=== PATIENT | female | born 1955 | race Caucasian/White ===

== ENCOUNTER 2017-05-11 20:10 | Inpatient (IN) | payer OTHER, MEDICAID ==
[~2017-05-11] VITALS: Ht 157.5 cm; Wt 70.0 kg
[2017-05-11 22:33] LABS: Basophils # (auto) 0 uL; Basophils % (auto) 0.2 % (0.0-2.0); CONDITION Y; Eosinophils # (auto) 0.5 uL; Eosinophils % (auto) 7.9 % (0.0-7.0); Hematocrit 37.8 % (36.0-46.0); Hemoglobin 12.3 g/dL (12.2-16.2); Lymphocytes # (auto) 1.2 uL; Mean Corpuscular Hemoglobin 31.4 pg (28.0-32.0); Mean Corpuscular Hgb Conc. 32.6 g/dL (32.0-36.0); Mean Corpuscular Volume 96.4 fL (80.0-100.0); Mean Platelet Volume 7.8 fL (7.4-10.4); Monocytes # (auto) 0.4 uL; Monocytes % (auto) 5.8 % (0.0-12.0); Neutrophils # (auto) 4.4 uL; Neutrophils % (auto) 67.1 % (37.0-80.0); Platelet Count (auto) 280 10^3/uL (140-450); Red Cell Distribution Width 15.2 % (11.6-16.0); White Blood Cell 6.6 10^3/uL (4.4-10.8)
[2017-05-11 22:44] LABS: INR 1.02 (0.9-1.15); Partial Thromboplastin Time 27.2 sec (22.64-33.71); Prothrombin Time 11.1 sec (9.37-12.3)
[2017-05-11 22:49] LABS: Albumin 3.1 g/dL (3.4-5.0); Amylase 31 U/L (25-115); Anion Gap 11 (5-15); Blood Urea Nitrogen 71 mg/dL (7-18); Calcium 8.3 mg/dL (8.5-10.1); Carbon Dioxide 25 mmol/L (21-32); Chloride 99 mmol/L (98-107); Glucose 82 mg/dL (74-106); Magnesium 3.3 mg/dL (1.6-2.6); Sodium 135 mmol/L (136-145)
[2017-05-11 22:57] LABS: Alkaline Phosphatase 101 U/L (45-117); Aspartate Aminotransferase 16 U/L (15-37); Bilirubin, Total 0.4 mg/dL (0.2-1.0); GFR African American 4 mL/min; GFR Non-African American 4 mL/min; Total Protein 7.7 g/dL (6.4-8.2)
[2017-05-11 22:59] LABS: BUN/Creatinine Ratio 6.2
[2017-05-11] MEDS ORDERED: SODIUM BICARBONATE 8.4% INJ 50ML SYRINGE ONE (23:57)
[2017-05-11] MEDS ORDERED: CALCIUM GLUC 4.65 MEQ/10ML IV ONE (23:58)
[2017-05-12] MEDS ORDERED: InsuLIN REG 1unit/0.01ml Soln (100units/ml) IV ONE
[2017-05-12] MEDS ORDERED: DEXTROSE (50%) 50ML SYRG IV ONE
[2017-05-12] MEDS ORDERED: SODIUM BICARBONATE 8.4 % INJ 50ML VIAL IV ONE
[2017-05-12] MEDS ORDERED: CALCIUM GLUC 4.65 MEQ/10ML 4.65 MEQ in SODIUM CHL 0.9% 50 ML IV ONE ×2
[2017-05-12] MEDS ORDERED: FUROSEMIDE 40 MG/4 ML VIAL IV ONE
[2017-05-12 00:54] LABS: Temperature: 22.7 C (20.0-25.0)
[2017-05-12] MEDS ORDERED: cloNIDine HCL 0.1 MG TAB ONE (01:38)
[2017-05-12] MEDS ORDERED: cloNIDine HCL 0.1 MG TAB PO ONE (01:45)
[2017-05-12] MEDS ORDERED: MORPHINE SULFATE 4 MG/ML SYRG IV PRN (03:15)
[2017-05-12] MEDS ORDERED: ALBUTEROL SULF 2.5 MG/0.5ML(0.5%) NEB SOLN NEB ONE (03:15)
[2017-05-12] MEDS ORDERED: NITROGLYCERIN 0.4 MG SL TAB SL PRN (03:15)
[2017-05-12] MEDS ORDERED: ONDANSETRON HCL 4 MG/2 ML VIAL IV PRN (03:15)
[2017-05-12] MEDS ORDERED: LACTULOSE 20Gm/30ML SOLN PO PRN (03:15)
[2017-05-12] MEDS ORDERED: DEXTROSE (50%) 50ML SYRG IV PRN (03:15)
[2017-05-12] MEDS ORDERED: SODIUM POLYSTYRENE SULF 15GM/60ML SUSP PO ONE (03:15)
[2017-05-12] MEDS: InsuLIN REG 1unit/0.01ml Soln (100units/ml) SC SCH ×4 (06:00→23:35)
[2017-05-12] MEDS: GABAPENTIN 100 MG CAP PO SCH ×3 (06:00→22:43)
[2017-05-12] MEDS: METOCLOPRAMIDE HCL 10 MG TAB PO SCH ×4 (06:15→22:42)
[2017-05-12] MEDS: ACCU-CHEK COMFORT CURVE STRIP VI SCH ×4 (06:18→23:34)
[2017-05-12] MEDS ORDERED: CALC667T2 PO (08:52)
[2017-05-12] MEDS ORDERED: [UNRECOGNIZED DRUG - CODE] PO (08:52)
[2017-05-12] MEDS ORDERED: DOCU-137 PO (08:52)
[2017-05-12] MEDS ORDERED: OMEG306C OR (08:52)
[2017-05-12] MEDS ORDERED: OMEP20TA85 PO (08:52)
[2017-05-12] MEDS ORDERED: GABA-494 PO (08:52)
[2017-05-12] MEDS ORDERED: CHOL20002 PO (08:52)
[2017-05-12] MEDS ORDERED: INSUINJ49 SC ×2 (08:52)
[2017-05-12] MEDS ORDERED: SENN8.6T15 PO (08:56)
[2017-05-12] MEDS ORDERED: B-CO-5 OR (08:56)
[2017-05-12] MEDS ORDERED: CAR125T OR (08:56)
[2017-05-12] MEDS ORDERED: HYDR1CRE95 EX (08:56)
[2017-05-12] MEDS ORDERED: GLIM1TAB2 PO (08:56)
[2017-05-12] MEDS ORDERED: AML5T PO (08:56)
[2017-05-12] MEDS ORDERED: ATOR20TA50 PO (08:56)
[2017-05-12] MEDS ORDERED: ASPI-498 OR (08:56)
[2017-05-12] MEDS ORDERED: LISI-646 PO (08:56)
[2017-05-12] MEDS ORDERED: ESCI10TA PO (08:56)
[2017-05-12] MEDS ORDERED: ONDA4TAB5 PO (08:56)
[2017-05-12] MEDS ORDERED: ZALE10CA44 PO (08:56)
[2017-05-12 09:13] LABS: Albumin 3.2 g/dL (3.4-5.0); BUN/Creatinine Ratio 6.7; Bilirubin, Total 0.4 mg/dL (0.2-1.0); Calcium 8.9 mg/dL (8.5-10.1); Total Protein 7.4 g/dL (6.4-8.2)
[2017-05-12 09:14] LABS: Urine Bilirubin Negative (Negative); Urine Blood 1+ /uL (Negative); Urine Color Yellow (Yellow); Urine Glucose 2+ mg/dL (Normal); Urine Hyaline Cast MANY /lpf (0 - 2); Urine Ketone Negative (Negative); Urine Nitrite Negative (Negative); Urine RBC 9 /hpf (0 - 4); Urine Squamous Epithelial Cell MOD /hpf (<5); Urine Urobilinogen Normal (Negative); Urine WBC Clumps PRESENT /hpf (None Seen); Urine pH 7.5 (5.0-8.0)
[2017-05-12 09:18] LABS: Potassium 5.6 mmol/L (3.5-5.1)
[2017-05-12] MEDS: B-COMPLEX W/ C & FOLIC ACID(NEPHROVITE TAB) PO SCH (09:41)
[2017-05-12] MEDS: PANTOPRAZOLE SODIUM 40 MG/10 ML VIAL IV SCH (09:41)
[2017-05-12] MEDS: LISINOPRIL 20 MG TAB PO SCH (09:41)
[2017-05-12] MEDS: CHOLECALCIFEROL (VITD3) 1,000 UNIT TAB PO SCH (09:41)
[2017-05-12] MEDS: DOCUSATE SOD 100 MG CAP PO SCH ×2 (09:41→22:00)
[2017-05-12] MEDS: amLODIPine BESYLATE 5 MG TAB PO SCH (09:41)
[2017-05-12] MEDS: ASPirin 81 mg TAB PO SCH (09:41)
[2017-05-12] MEDS: CARVEDILOL 12.5 MG TAB PO SCH ×2 (09:41→22:44)
[2017-05-12] MEDS: CALCIUM ACETATE 667 MG CAP PO SCH ×3 (09:41→18:09)
[2017-05-12] MEDS: ENOXAPARIN SOD 30 MG/0.3 ML SYRINGE SC SCH (09:42)
[2017-05-12] MEDS: ACETAMINOPHEN 325 MG TAB PO PRN ×2 (13:45→19:53)
[2017-05-12] MEDS: hydrALAZINE HCL 20 MG/ML VL IV PRN ×2 (13:45→19:53)
[2017-05-12] MEDS ORDERED: SODIUM CHL 0.9% 1000 ML BAG XX ONE (14:15)
[2017-05-12] MEDS ORDERED: cefTRIAXone 1GM/50ML D5W 50 ML IV ONE (17:00)
[2017-05-12 19:19] VITALS: BP 89/51
[2017-05-12 20:03] LABS: BUN/Creatinine Ratio 5.2; Calcium 8.6 mg/dL (8.5-10.1); Potassium 3.9 mmol/L (3.5-5.1)
[2017-05-12 22:00] VITALS: BP_SYST 143; BP_SYST 145; BP_DIAS 60; BP_DIAS 66
[2017-05-12] MEDS: ATORVASTATIN 20 MG TAB PO SCH (22:43)
[2017-05-13 05:00] VITALS: BP 160/64
[2017-05-13 05:21] LABS: Basophils # (auto) 0 uL; Basophils % (auto) 0.2 % (0.0-2.0); CONDITION Y; Eosinophils # (auto) 0 uL; Eosinophils % (auto) 0.2 % (0.0-7.0); Hematocrit 37.7 % (36.0-46.0); Hemoglobin 12.1 g/dL (12.2-16.2); Lymphocytes # (auto) 1.3 uL; Lymphocytes % (auto) 12.3 % (10.0-50.0); Mean Corpuscular Hemoglobin 31.1 pg (28.0-32.0); Mean Corpuscular Hgb Conc. 32.3 g/dL (32.0-36.0); Mean Corpuscular Volume 96.5 fL (80.0-100.0); Mean Platelet Volume 8.1 fL (7.4-10.4); Monocytes # (auto) 0.5 uL; Monocytes % (auto) 4.5 % (0.0-12.0); Neutrophils # (auto) 8.5 uL; Neutrophils % (auto) 82.8 % (37.0-80.0); Platelet Count (auto) 272 10^3/uL (140-450); Red Cell Distribution Width 15.4 % (11.6-16.0); White Blood Cell 10.2 10^3/uL (4.4-10.8)
[2017-05-13] MEDS: ACCU-CHEK COMFORT CURVE STRIP VI SCH ×4 (05:36→23:11)
[2017-05-13] MEDS: InsuLIN REG 1unit/0.01ml Soln (100units/ml) SC SCH ×4 (05:36→23:28)
[2017-05-13 05:41] LABS: Albumin 2.9 g/dL (3.4-5.0); BUN/Creatinine Ratio 4.8; Bilirubin, Total 0.3 mg/dL (0.2-1.0); Calcium 8.4 mg/dL (8.5-10.1); Potassium 4.6 mmol/L (3.5-5.1)
[2017-05-13] MEDS: METOCLOPRAMIDE HCL 10 MG TAB PO SCH ×4 (06:11→21:41)
[2017-05-13] MEDS: GABAPENTIN 100 MG CAP PO SCH ×3 (06:11→21:40)
[2017-05-13 07:30] VITALS: BP 150/59
[2017-05-13 08:53] VITALS: BP 150/59
[2017-05-13] MEDS: ENOXAPARIN SOD 30 MG/0.3 ML SYRINGE SC SCH (10:37)
[2017-05-13] MEDS: B-COMPLEX W/ C & FOLIC ACID(NEPHROVITE TAB) PO SCH (10:37)
[2017-05-13] MEDS: cefTRIAXone 1GM/50ML D5W 50 ML IV SCH (10:37)
[2017-05-13] MEDS: PANTOPRAZOLE SODIUM 40 MG/10 ML VIAL IV SCH (10:37)
[2017-05-13] MEDS: CALCIUM ACETATE 667 MG CAP PO SCH ×3 (10:37→17:31)
[2017-05-13] MEDS: CARVEDILOL 12.5 MG TAB PO SCH ×2 (10:38→21:41)
[2017-05-13] MEDS: DOCUSATE SOD 100 MG CAP PO SCH ×2 (10:38→21:40)
[2017-05-13] MEDS: ASPirin 81 mg TAB PO SCH (10:39)
[2017-05-13] MEDS: LISINOPRIL 20 MG TAB PO SCH (10:39)
[2017-05-13] MEDS: amLODIPine BESYLATE 5 MG TAB PO SCH (10:39)
[2017-05-13] MEDS: CHOLECALCIFEROL (VITD3) 1,000 UNIT TAB PO SCH (10:39)
[2017-05-13] MEDS: ACETAMINOPHEN 325 MG TAB PO PRN ×2 (11:41→20:21)
[2017-05-13 13:00] VITALS: BP 123/51
[2017-05-13 16:43] VITALS: BP 143/58
[2017-05-13 21:35] VITALS: BP 161/72
[2017-05-13] MEDS: ATORVASTATIN 20 MG TAB PO SCH (21:40)
[2017-05-13] MEDS: hydrALAZINE HCL 20 MG/ML VL IV PRN (23:10)
[2017-05-14 00:30] VITALS: BP 145/68
[2017-05-14 04:34] VITALS: BP 125/65
[2017-05-14] MEDS: ACCU-CHEK COMFORT CURVE STRIP VI SCH ×3 (05:31→17:44)
[2017-05-14] MEDS: GABAPENTIN 100 MG CAP PO SCH ×2 (05:31→14:01)
[2017-05-14] MEDS: InsuLIN REG 1unit/0.01ml Soln (100units/ml) SC SCH ×3 (05:32→17:43)
[2017-05-14] MEDS: METOCLOPRAMIDE HCL 10 MG TAB PO SCH ×3 (05:52→17:00)
[2017-05-14 06:21] LABS: Basophils # (auto) 0 uL; Basophils % (auto) 0.2 % (0.0-2.0); CONDITION Y; Eosinophils # (auto) 0.5 uL; Eosinophils % (auto) 6.7 % (0.0-7.0); Hematocrit 36.2 % (36.0-46.0); Hemoglobin 11.6 g/dL (12.2-16.2); Lymphocytes # (auto) 1.7 uL; Lymphocytes % (auto) 22.8 % (10.0-50.0); Mean Corpuscular Hemoglobin 31.6 pg (28.0-32.0); Mean Corpuscular Volume 98.7 fL (80.0-100.0); Mean Platelet Volume 8.3 fL (7.4-10.4); Monocytes # (auto) 0.6 uL; Monocytes % (auto) 8.5 % (0.0-12.0); Neutrophils # (auto) 4.5 uL; Neutrophils % (auto) 61.8 % (37.0-80.0); Platelet Count (auto) 274 10^3/uL (140-450); Red Cell Distribution Width 15.6 % (11.6-16.0); White Blood Cell 7.3 10^3/uL (4.4-10.8)
[2017-05-14 06:40] LABS: Calcium 8.3 mg/dL (8.5-10.1); Potassium 4.3 mmol/L (3.5-5.1)
[2017-05-14] MEDS ORDERED: SODIUM CHL 0.9% 1000 ML BAG XX ONE (07:30)
[2017-05-14] MEDS: CALCIUM ACETATE 667 MG CAP PO SCH ×3 (08:00→17:44)
[2017-05-14 09:00] VITALS: BP 136/55
[2017-05-14] MEDS: PANTOPRAZOLE SODIUM 40 MG/10 ML VIAL IV SCH (09:48)
[2017-05-14] MEDS: ENOXAPARIN SOD 30 MG/0.3 ML SYRINGE SC SCH (09:49)
[2017-05-14] MEDS: cefTRIAXone 1GM/50ML D5W 50 ML IV SCH (09:51)
[2017-05-14] MEDS: CARVEDILOL 12.5 MG TAB PO SCH (10:00)
[2017-05-14] MEDS: amLODIPine BESYLATE 5 MG TAB PO SCH (10:00)
[2017-05-14] MEDS: CHOLECALCIFEROL (VITD3) 1,000 UNIT TAB PO SCH (10:00)
[2017-05-14] MEDS: B-COMPLEX W/ C & FOLIC ACID(NEPHROVITE TAB) PO SCH (10:00)
[2017-05-14] MEDS: DOCUSATE SOD 100 MG CAP PO SCH (10:00)
[2017-05-14] MEDS: LISINOPRIL 20 MG TAB PO SCH (10:00)
[2017-05-14] MEDS: ASPirin 81 mg TAB PO SCH (10:00)
[2017-05-14 13:00] VITALS: BP 152/68
[2017-05-14] MEDS: hydrALAZINE HCL 20 MG/ML VL IV PRN (14:00)
[2017-05-14] MEDS: ACETAMINOPHEN 325 MG TAB PO PRN ×2 (14:01→20:42)
[2017-05-14 17:00] VITALS: BP 139/66
[2017-05-14 21:42] VITALS: BP 147/76
== END 2017-05-14 22:30 | disposition home or self-care (01) | DRG 682 ==
LOC: ER 20:17 → TELE 20:18 → TELE-EAST 05-12 22:12
PROVIDERS: ADMIT Family Medicine; ATTEND Internal Medicine Geriatric Medicine
PROC: 5A1D60Z (ICD-10-PCS; principal; 2017-05-12)
DX: I13.11 Hypertensive heart and chronic kidney disease without heart failure, with stage 5 chronic kidney disease, or end stage renal disease (principal); G93.41 Metabolic encephalopathy; N18.6 End stage renal disease; E87.1 Hypo-osmolality and hyponatremia; E11.22 Type 2 diabetes mellitus with diabetic chronic kidney disease; E87.5 Hyperkalemia; E11.649 Type 2 diabetes mellitus with hypoglycemia without coma; Z99.2 Dependence on renal dialysis; Z91.15 Patient's noncompliance with renal dialysis
CPT/HCPCS: 36415; 51702; 71010; 80048; 80053; 80061; 81001; 82150; 82962; 83036; 83690; 83735; 83880; 84132; 84484; 85025; 85610; 85730; 90935; 93005; 94644; 94761; C9113; J0696; J1642; J1815; J2405

== ENCOUNTER 2018-12-22 11:31 | Inpatient (IN) | payer OTHER, MEDICAID ==
[~2018-12-22] VITALS: Ht 157.5 cm; Wt 56.8 kg
[~2018-12-22 11:31] MED LIST: AML5T PO; ASPI-498 OR; ATOR20TA50 PO; B-CO-5 OR; CALC667T2 PO; CAR125T OR; CHOL20002 PO; DOCU1CAP54 PO; ESCI10TA PO; GABA100C9 PO; GLIM1TAB2 PO; HYDR1CRE95 EX; INSUINJ49 SC; LISI-646 PO; OMEG306C OR; OMEP20TA85 PO; ONDA4TAB5 PO; SENN1TAB14 PO; ZALE10CA44 PO; [UNRECOGNIZED DRUG - CODE] PO
[2018-12-22] MEDS ORDERED: MORPHINE SULFATE 4 MG/ML SYR/VIAL IV ONE (11:45)
[2018-12-22] MEDS ORDERED: ONDANSETRON HCL 4 MG/2 ML VIAL IV ONE (11:45)
[2018-12-22 13:32] LABS: Basophils # (auto) 0 uL; Eosinophils # (auto) 0.1 uL; Monocytes # (auto) 0.5 uL
[2018-12-22 13:33] LABS: Mean Corpuscular Volume 91.2 fL (80.0-100.0)
[2018-12-22 13:42] LABS: Basophils % (auto) 0.7 % (0.0-2.0); Eosinophils % (auto) 1.3 % (0.0-7.0); Neutrophils # (auto) 5.6 uL; Nucleated Red Blood Cells % 0.1 %; White Blood Cell 6.9 10^3/uL (4.4-10.8)
[2018-12-22 13:43] LABS: Hematocrit 26.4 % (36.0-46.0); Hemoglobin 8.4 g/dL (12.2-16.2); Lymphocytes # (auto) 0.7 uL; Mean Corpuscular Hemoglobin 28.9 pg (28.0-32.0); Mean Corpuscular Hgb Conc. 31.7 g/dL (32.0-36.0); Red Blood Cells 2.89 10^6/uL (4.0-5.20); Red Cell Distribution Width 19.6 % (11.8-14.3)
[2018-12-22 13:44] LABS: INR 1.05 (0.9-1.15); Partial Thromboplastin Time 30.6 sec (23.78-33.04); Platelet Count (auto) 446 10^3/uL (140-450); Prothrombin Time 11.2 sec (9.27-12.13)
[2018-12-22 13:51] LABS: Albumin 1.5 g/dL (3.4-5.0); BUN/Creatinine Ratio 3.6; Calcium 7.4 mg/dL (8.5-10.1); Potassium 3.1 mmol/L (3.5-5.1)
[2018-12-22 13:56] LABS: Bilirubin, Total 0.3 mg/dL (0.2-1.0); Total Protein 6.4 g/dL (6.4-8.2)
[2018-12-22] MEDS ORDERED: DEXTROSE (50%) 50ML SYRG IV PRN (14:00)
[2018-12-22] MEDS ORDERED: PROMETHAZINE HCL 25 MG/ML 1ML IV PRN (14:00)
[2018-12-22] MEDS ORDERED: LACTULOSE 20Gm/30ML SOLN PO PRN (14:00)
[2018-12-22] MEDS ORDERED: MORPHINE SULFATE 4 MG/ML SYR/VIAL IV PRN ×2 (14:00)
[2018-12-22] MEDS ORDERED: NITROGLYCERIN 0.4 MG SL TAB SL PRN (14:00)
[2018-12-22] MEDS ORDERED: LORazepam 0.5 MG TAB PO PRN (14:00)
[2018-12-22] MEDS ORDERED: HYDROcodone-ACET 5/325MG TAB PO PRN (14:00)
[2018-12-22] MEDS ORDERED: NITROGLYCERIN 0.2MG/HR TOPICAL PATCH TD ONE (14:30)
[2018-12-22] MEDS ORDERED: ASPirin 81 mg TAB PO ONE (14:30)
[2018-12-22] MEDS ORDERED: GLIMEPIRIDE 2 MG TAB PO ONE (14:30)
[2018-12-22] MEDS ORDERED: CHOLECALCIFEROL (VITD3) 1,000 UNIT TAB PO ONE (14:30)
[2018-12-22] MEDS ORDERED: PANTOPRAZOLE 40 MG TAB PO ONE (14:30)
[2018-12-22] MEDS ORDERED: CARVEDILOL 12.5 MG TAB PO ONE (14:30)
[2018-12-22] MEDS ORDERED: DOCUSATE SOD 100 MG CAP PO ONE (14:30)
[2018-12-22] MEDS ORDERED: CITALOPRAM HYDROBR 20 MG TAB PO ONE (14:30)
[2018-12-22] MEDS ORDERED: LISINOPRIL 20 MG TAB PO ONE (14:30)
[2018-12-22] MEDS ORDERED: amLODIPine BESYLATE 5 MG TAB PO ONE (14:30)
[2018-12-22] MEDS: METOCLOPRAMIDE HCL 10 MG TAB PO SCH ×2 (15:31→22:00)
[2018-12-22] MEDS: GLIMEPIRIDE 2 MG TAB PO SCH (15:33)
[2018-12-22] MEDS: SODIUM CHLOR 0.9% PF (SALINE LOCK) 10ML VIAL/SYR IV SCH ×2 (15:33→23:46)
[2018-12-22] MEDS: GABAPENTIN 100 MG CAP PO SCH ×2 (15:34→22:00)
[2018-12-22] MEDS ORDERED: OSELTAMIVIR 75 MG CAP PO ONE (17:00)
[2018-12-22] MEDS ORDERED: ALBUTEROL SULF 2.5 MG/0.5ML(0.5%) NEB SOLN NEB PRN (17:00)
[2018-12-22] MEDS ORDERED: ENOXAPARIN SOD 60 MG/0.6 ML SYRINGE SC ONE (17:00)
[2018-12-22] MEDS: ACCU-CHEK COMFORT CURVE STRIP VI SCH ×2 (17:29→23:02)
[2018-12-22] MEDS: InsuLIN REG 1unit/0.01ml Soln (100units/ml) SC SCH ×2 (17:33→22:00)
[2018-12-22 17:58] VITALS: BP 135/66
[2018-12-22] MEDS ORDERED: CALCIUM ACETATE 667 MG CAP PO SCH (18:00)
[2018-12-22] MEDS: DOXYCYCLINE 100MG/250ML 250 ML IV SCH (18:26)
[2018-12-22] MEDS: CALCIUM ACETATE 667 MG CAP PO SCH (18:26)
[2018-12-22] MEDS: IPRATROPIUM BROM 0.5 MG/2.5ML INH SOL NEB SCH ×2 (18:44→23:49)
[2018-12-22] MEDS: ALBUTEROL SULF 2.5 MG/0.5ML(0.5%) NEB SOLN NEB SCH ×2 (18:44→23:49)
[2018-12-22] MEDS: ATORVASTATIN 20 MG TAB PO SCH (22:00)
[2018-12-22] MEDS: SENNA 8.6 MG TAB PO SCH (22:00)
[2018-12-22] MEDS: DOCUSATE SOD 100 MG CAP PO SCH (22:00)
[2018-12-22] MEDS: CARVEDILOL 12.5 MG TAB PO SCH (22:00)
[2018-12-22 22:05] VITALS: BP 148/66
--- NOTE | 2018-12-22 22:08 | NUR ---
Telemetry admit from ER VIANEY FIGUEROA admitted to Telemetry unit. Patient responds to name and shaking. Patient is oriented to self only at this time. Patient now on continuous telemetry monitoring, tele box # 45. and telemetry reading on arrival to unit is sinus rhythm 70. Patient placed on bedside oxygen 3L NC. at bedside. Physical assessment performed. Reviewed plan of care with , verbalized understanding. Bed in low and locked position, call light within reach. Will continue to monitor Q1 hour and PRN.
--- NOTE | 2018-12-22 23:02 | NUR ---
Low Blood Glucose Upon entering patients room, patient was diaphoretic. Checked blood glucose, blood glucose was 31. Patient is unable to swallow, dextrose was give. Will continue to monitor
--- NOTE | 2018-12-22 23:05 | NUR ---
Medications held Patient is unable to swallow. 2200 Medications were held. Will continue to monitor Q1 hour and PRN.
--- NOTE | 2018-12-22 23:22 | NUR ---
Blood Glucose Reassessed Reassessment of blood glucose is 221. Charge nurse Adelaida is aware of patient status. Patient is aroused to name and shaking. Patient is able to state her name. Will continue to monitor Q1 hour and PRN.
--- NOTE | 2018-12-22 23:31 | NUR ---
Blood Glucose Reassessed blood glucose, is now at 176. Will continue to monitor Q1 hour and PRN.
--- NOTE | 2018-12-23 00:15 | NUR ---
Unable to obtain home medications Patient is unable to answer. Family to bring in list tomorrow.
--- NOTE | 2018-12-23 00:45 | NUR ---
Wound photos taken Photos taken of sacrum, redness and bruising. Photos taken of skin tear on buttocks. Area cleaned and pat dry, covered with zguard and optifoam for preventative. Will continue to monitor
--- NOTE | 2018-12-23 01:26 | NUR ---
MRSA swab sent
[2018-12-23] MEDS: DOXYCYCLINE 100MG/250ML 250 ML IV SCH ×2 (04:32→17:55)
--- NOTE | 2018-12-23 04:50 | NUR ---
Respiratory culture sent Patient produced thick yellow sputum, collected and sent to lab
[2018-12-23] MEDS: SODIUM CHLOR 0.9% PF (SALINE LOCK) 10ML VIAL/SYR IV SCH ×3 (04:51→21:16)
[2018-12-23] MEDS: GABAPENTIN 100 MG CAP PO SCH ×3 (05:15→21:19)
[2018-12-23] MEDS: METOCLOPRAMIDE HCL 10 MG TAB PO SCH ×3 (05:16→21:20)
[2018-12-23 05:55] VITALS: BP 168/62
[2018-12-23 05:59] LABS: Basophils # (auto) 0 uL; Eosinophils # (auto) 0 uL; Eosinophils % (auto) 0.8 % (0.0-7.0); Hemoglobin 7.8 g/dL (12.2-16.2); Lymphocytes # (auto) 0.4 uL; Monocytes # (auto) 0.4 uL; Neutrophils % (auto) 77.8 % (37.0-80.0); White Blood Cell 3.9 10^3/uL (4.4-10.8)
[2018-12-23 06:00] LABS: Basophils % (auto) 0.6 % (0.0-2.0); Lymphocytes % (auto) 10.6 % (10.0-50.0); Mean Corpuscular Hemoglobin 29.5 pg (28.0-32.0); Mean Corpuscular Hgb Conc. 31.4 g/dL (32.0-36.0); Mean Corpuscular Volume 93.9 fL (80.0-100.0); Monocytes % (auto) 10.2 % (0.0-12.0); Platelet Count (auto) 375 10^3/uL (140-450); Red Blood Cells 2.66 10^6/uL (4.0-5.20); Red Cell Distribution Width 19.8 % (11.8-14.3)
[2018-12-23] MEDS: InsuLIN REG 1unit/0.01ml Soln (100units/ml) SC SCH ×4 (06:15→21:20)
[2018-12-23] MEDS: ACCU-CHEK COMFORT CURVE STRIP VI SCH ×4 (06:15→21:15)
[2018-12-23 06:17] LABS: Albumin 1.3 g/dL (3.4-5.0); Calcium 6.1 mg/dL (8.5-10.1)
[2018-12-23 06:22] LABS: BUN/Creatinine Ratio 3.9; Bilirubin, Total 0.2 mg/dL (0.2-1.0); Total Protein 5.3 g/dL (6.4-8.2)
[2018-12-23] MEDS: IPRATROPIUM BROM 0.5 MG/2.5ML INH SOL NEB SCH ×4 (06:23→23:33)
[2018-12-23] MEDS: ALBUTEROL SULF 2.5 MG/0.5ML(0.5%) NEB SOLN NEB SCH ×4 (06:23→23:33)
[2018-12-23 06:25] LABS: Potassium 2.8 mmol/L (3.5-5.1)
--- NOTE | 2018-12-23 06:28 | NUR ---
Critical lab value Lab called, critical Potassium 2.8. Will page hospitalist
--- NOTE | 2018-12-23 06:30 | NUR ---
[place] hospitalist Spoke with STEPHANIE Marlow. New orders received for critical potassium of 2.8. 40meq potassium IV one time. Will implement orders.
[2018-12-23] MEDS: POTASSIUM CHL 20MEQ/100ML 100 ML IV SCH ×2 (06:46→11:46)
--- NOTE | 2018-12-23 07:30 | NUR ---
OPENING NOTE RECEIVED REPORT. PATIENT ORIENTED TO SELF ONLY. PATIENT STATES SHE IS HUNGRY AND NEEDS HELP WITH BREAKFAST, WILL ASSIST PATIENT WHEN BREAKFAST ARRIVES. NO S.S OF DISTRESS AT THIS TIME. POTASSIUM INFUSING AT THIS TIME. Addendum: 12/23/18 at 0943 by LEONCIO MAYER RN PATIENT ABLE TO TURN SELF, NEEDS REMINDERS. WILL CONTINUE TO MONITOR.
--- NOTE | 2018-12-23 07:46 | NUR ---
Closing Note Report given to day shift RN. No signs or symptoms of distress noted at this time.
--- NOTE | 2018-12-23 08:00 | NUR ---
FAMILY AT BEDSIDE, ASSISTED PATIENT WITH BREAKFAST.
[2018-12-23] MEDS: ASPirin 81 mg TAB PO SCH (08:21)
[2018-12-23] MEDS: CALCIUM ACETATE 667 MG CAP PO SCH ×3 (08:21→17:55)
[2018-12-23] MEDS: DOCUSATE SOD 100 MG CAP PO SCH ×2 (08:21→21:17)
[2018-12-23] MEDS: CITALOPRAM HYDROBR 20 MG TAB PO SCH (08:22)
[2018-12-23] MEDS: CHOLECALCIFEROL (VITD3) 1,000 UNIT TAB PO SCH (08:22)
[2018-12-23] MEDS: PANTOPRAZOLE 40 MG TAB PO SCH (08:22)
[2018-12-23] MEDS: ENOXAPARIN SOD 60 MG/0.6 ML SYRINGE SC SCH (08:23)
[2018-12-23] MEDS: amLODIPine BESYLATE 5 MG TAB PO SCH (08:24)
[2018-12-23] MEDS: NITROGLYCERIN 0.2MG/HR TOPICAL PATCH TD SCH (08:24)
[2018-12-23 09:00] VITALS: BP 138/59
--- NOTE | 2018-12-23 09:58 | NUR ---
WOUND CARE NOTE: Wound care in to see patient per wound care request regarding skin integrity issue that are noted present on admission. Bedside nurse took photograph of patient's skin issue upon admission for reference. Patient is 63 years old female with admitting diagnosis of Chest pain. She has history of DM and htn. Patient is resting in bed in Rm. 209. She's awake, alert and follow simple direction. Patient in no stated pain at this time however, mild pain noted upon turning. She needs assistance in turning and repositioning and her current Ricardo score is 13. Skin assessment done with the assistance of patient's nurse, KENYA Bsos. Noted 1x0.5cm open partial thickness wound to patient's Rt sacrum with brown hyperpigmented non-blanchable surrounding skin. Patient's daughter at bedside reported patient has had the sacral wound "since beginning of November" as patient stays mostly in bed and wears diaper at home. R sacral wound consistent with Stage 2 pressure injury probably from combination of moisture and pressure. Cleansed patient's sacral/buttocks with mild soap and water, patted dry, applied Z Guard cream and covered with Opti foam gentle dressing. Patient and family education given regarding wound care, adult brief's contribution to skin breakdown and importance of frequent turning and repositioning in pressure redistribution. Patient's daughter verbalized understanding. Repositioned patient for comfort facing her Rt side, redistributed pressure points with pillows. Patient tolerated well. Patient's daughter at bedside. RECOMMENDATION: BID/PRN cleaning and application of Z Guard cream to sacrum per MD order, Dietary consult, frequent turning and repositioning schedule as condition permits, redistribute pressure points with pillows,elevate heels on pillows, continue monitoring by wound care while patient is hospitalized. Addendum: 12/23/18 at 1150 by Ruby Garcia RN Amended: Links added.
[2018-12-23] MEDS: CARVEDILOL 12.5 MG TAB PO SCH ×2 (10:00→21:19)
[2018-12-23] MEDS: GLIMEPIRIDE 2 MG TAB PO SCH (10:00)
[2018-12-23] MEDS ORDERED: LISINOPRIL 20 MG TAB PO SCH (10:00)
--- NOTE | 2018-12-23 10:00 | NUR ---
WOUND CARE AT BEDSIDE. PATIENT AND FAMILY EDUCATED ON THE RISKS ASSOCIATED WITH USING DIAPERS AT HOME. INFORMED PATIENT AND FAMILY TO CALL FOR BEDPAN WHEN PATIENT FEELS THE URGE. PATIENT AND FAMILY VERBALIZED UNDERSTANDING.
--- NOTE | 2018-12-23 11:37 | NUR ---
MD SCHMIDT AT BEDSIDE. NEW ORDERS TO STOP IV POTASSIUM PER PATIENT REQUEST, NEW ORDERS FRO PO POTASSIUM. PENDING CARDIOLOGY AND NEPHRO CONSULT. SEE ORDERS. Addendum: 12/23/18 at 1151 by LEONCIO MAYER RN PATIENT FAMILY REQUESTING FOR SOMEONE TO CUT PATIENT'S NAILS. PER MD SCHMIDT [facility], INFO GIVEN TO FAMILY, ROLL MILL OPERATOR CAN SEE PATIENT OUTPATIENT. WILL INFORM FAMILY.
[2018-12-23] MEDS ORDERED: POTASSIUM CHL 20 Meq TABLET PO ONE (11:45)
[2018-12-23] MEDS: OSELTAMIVIR 30 MG CAP PO SCH (12:00)
--- NOTE | 2018-12-23 12:24 | NUR ---
SPOKE WITH MD CANAS ON THE PHONE. ADVISED THAT PATIENT IS A DIALYSIS PATIENT, PENDING CT ANGIO. NO NEW ORDERS AT THIS TIME.
--- NOTE | 2018-12-23 12:31 | NUR ---
DIALYSIS TOMORROW, PER MD CANAS. PER , NO NEED TO PUT IN ORDERS, "I GIVE VERBAL ORDER, AND THE REST IS TAKEN CARE OF."
--- NOTE | 2018-12-23 13:19 | NUR ---
PATIENT NPO PENDING CT. PATIENT AND FAMILY AWARE AND VERBALIZED UNDERSTANDING.
--- NOTE | 2018-12-23 14:00 | NUR ---
IV insertion IV access obtained, via clean sterile technique by inserting 20 gauge catheter at the right antecubital after 1 attempt. IV secured properly. No trauma to site. Patient tolerated well.
--- NOTE | 2018-12-23 14:40 | NUR ---
ASKED PATIENT TO BRING IN PATIENT OWN MEDICATION VIA PATENT ENGINEER. PATIENT VERBALIZED UNDERSTANDING.
[2018-12-23] MEDS ORDERED: IOHEXOL 350 MG/ML 100ML IJ ONE (15:36)
[2018-12-23 17:00] VITALS: BP 148/71
--- NOTE | 2018-12-23 18:30 | NUR ---
FAMILY AT BEDSIDE- PATIENT EATING DINNER.
--- NOTE | 2018-12-23 19:15 | NUR ---
open note assumed care of pt. upon entering room pt son at bedside. pt on 3L NC o2 saturation 99% and HR 80bpm. pt denied any pain and no s/s distress noted or expressed. pt and son updated on plan of care. call light in reach. no additional questions at this time. pt will be turned q2hr. will round q1hr and as needed.
--- NOTE | 2018-12-23 19:23 | NUR ---
CLOSING NOTE REPORT GIVEN TO TABLEAU ARCHITECT RN. PATIENT IN BED LOW LOCK POSITION, CALL LIGHT IN REACH. IV PATENT AND INFUSING. OXYGEN ON. FAMILY AT BEDSIDE. NO S/S OF DISTRESS.
[2018-12-23] MEDS: ATORVASTATIN 20 MG TAB PO SCH (21:19)
[2018-12-23] MEDS: SENNA 8.6 MG TAB PO SCH (21:20)
[2018-12-23 22:00] VITALS: BP 200/75
[2018-12-24] VITALS (7 sets, daily range): BP systolic 115–185; BP diastolic 55–76
[2018-12-24] MEDS: DOXYCYCLINE 100MG/250ML 250 ML IV SCH ×2 (05:00→17:00)
[2018-12-24] MEDS: METOCLOPRAMIDE HCL 10 MG TAB PO SCH ×3 (05:39→22:00)
[2018-12-24] MEDS: GABAPENTIN 100 MG CAP PO SCH ×3 (05:39→22:00)
[2018-12-24] MEDS: SODIUM CHLOR 0.9% PF (SALINE LOCK) 10ML VIAL/SYR IV SCH ×3 (05:49→22:00)
[2018-12-24 05:57] LABS: Basophils # (auto) 0.1 uL; Basophils % (auto) 1.2 % (0.0-2.0); Eosinophils # (auto) 0 uL; Eosinophils % (auto) 0.9 % (0.0-7.0); Hematocrit 25.1 % (36.0-46.0); Hemoglobin 7.9 g/dL (12.2-16.2); Lymphocytes # (auto) 0.8 uL; Lymphocytes % (auto) 15.7 % (10.0-50.0); Mean Corpuscular Hemoglobin 29.1 pg (28.0-32.0); Mean Corpuscular Hgb Conc. 31.6 g/dL (32.0-36.0); Mean Corpuscular Volume 92.1 fL (80.0-100.0); Monocytes # (auto) 0.5 uL; Neutrophils # (auto) 3.7 uL; Neutrophils % (auto) 72.2 % (37.0-80.0); Platelet Count (auto) 397 10^3/uL (140-450); Red Blood Cells 2.73 10^6/uL (4.0-5.20); White Blood Cell 5.2 10^3/uL (4.4-10.8)
[2018-12-24 05:59] LABS: Red Cell Distribution Width 20.7 % (11.8-14.3)
[2018-12-24 06:05] LABS: BUN/Creatinine Ratio 3.8; Calcium 7.8 mg/dL (8.5-10.1)
[2018-12-24] MEDS: ACCU-CHEK COMFORT CURVE STRIP VI SCH ×4 (06:33→22:00)
[2018-12-24] MEDS: InsuLIN REG 1unit/0.01ml Soln (100units/ml) SC SCH ×4 (06:33→22:00)
[2018-12-24] MEDS: ACETAMINOPHEN 500 MG TAB PO PRN ×2 (06:54→21:44)
--- NOTE | 2018-12-24 07:06 | NUR ---
paged hospitalist for bp 185/76mmhg [id number]. pt in no distress.
[2018-12-24] MEDS: ALBUTEROL SULF 2.5 MG/0.5ML(0.5%) NEB SOLN NEB SCH ×3 (07:12→20:07)
[2018-12-24] MEDS: IPRATROPIUM BROM 0.5 MG/2.5ML INH SOL NEB SCH ×3 (07:12→20:07)
--- NOTE | 2018-12-24 07:15 | NUR ---
made oncoming nurse aware of elevated BP
[2018-12-24] MEDS: amLODIPine BESYLATE 5 MG TAB PO SCH (07:16)
[2018-12-24] MEDS: CARVEDILOL 12.5 MG TAB PO SCH ×2 (07:16→22:00)
[2018-12-24] MEDS: DOCUSATE SOD 100 MG CAP PO SCH ×2 (10:00→22:00)
[2018-12-24] MEDS: GLIMEPIRIDE 2 MG TAB PO SCH (10:00)
[2018-12-24] MEDS: CALCIUM ACETATE 667 MG CAP PO SCH ×3 (10:06→17:56)
[2018-12-24] MEDS: ENOXAPARIN SOD 60 MG/0.6 ML SYRINGE SC SCH (10:06)
[2018-12-24] MEDS: ASPirin 81 mg TAB PO SCH (10:06)
[2018-12-24] MEDS: CITALOPRAM HYDROBR 20 MG TAB PO SCH (10:06)
[2018-12-24] MEDS: CHOLECALCIFEROL (VITD3) 1,000 UNIT TAB PO SCH (10:07)
[2018-12-24] MEDS: NITROGLYCERIN 0.2MG/HR TOPICAL PATCH TD SCH (10:07)
[2018-12-24] MEDS: PANTOPRAZOLE 40 MG TAB PO SCH (10:07)
[2018-12-24] MEDS: OSELTAMIVIR 30 MG CAP PO SCH (10:08)
--- NOTE | 2018-12-24 10:30 | NUR ---
MD SCHMIDT AT BEDSIDE. UPDATE MD ON PATIENT MORNING BLOOD PRESSURE 185/76. NO NEW ORDERS AT THIS TIME.
[2018-12-24] MEDS ORDERED: cloNIDine HCL 0.1 MG TAB PO PRN (11:15)
--- NOTE | 2018-12-24 12:32 | NUR ---
NUTRITION CONSULT/ASSESSMENT NOTES Please refer to link notes of nutrition screen form filed under the intervention section of the plan of care for further details. Est. Needs: 1500kcal to 1800 kcal (25-30 kcal/kgBW), 73 gms to 110 gms pro (1.2-1.5 gms/kgBW d/t ESRD on HD, severe hypoalbuminemia). Will continue to monitor pertinent labs and reassess nutrient need prn Thank you for this consult. Addendum: 12/24/18 at [address] Amended: Links added.
--- NOTE | 2018-12-24 13:22 | NUR ---
DIALYSIS DAMIAN FROM [facility] CALLED, SAID SHE WILL BE HERE IN ONE AND HALF HOURS. WILL CONTINUE TO MONITOR PATIENT.
[2018-12-24] MEDS ORDERED: INSREG3 SC (13:38)
[2018-12-24] MEDS ORDERED: B-CO-5 PO (13:41)
[2018-12-24] MEDS ORDERED: MEGE40TA15 PO (13:41)
--- NOTE | 2018-12-24 15:13 | NUR ---
DIALYSIS NURSE AT BEDSIDE.
[2018-12-24] MEDS ORDERED: SODIUM CHL 0.9% 1000 ML BAG XX ONE (15:30)
--- NOTE | 2018-12-24 17:30 | NUR ---
Afternoon medications held. Patient having dialysis.
--- NOTE | 2018-12-24 18:10 | NUR ---
DIALYSIS FINISHED. Addendum: 12/24/18 at 1839 by LEONCIO MAYER RN PER DIALYSIS NURSE, DAMIAN, KEEP PRESSURE DRESSING TO LEFT ARM UNTIL [id number]. WILL INFORM SEASONAL TAX PREPARER. WILL CONTINUE TO MONITOR. Addendum: 12/24/18 at 1847 by LEONCIO MAYER RN 2.83 LITERS OUT.
--- NOTE | 2018-12-24 18:20 | NUR ---
FAMILY AT BEDSIDE ASSISTING PATIENT WITH DINNER.
--- NOTE | 2018-12-24 18:53 | NUR ---
PATIENT OWN MEDICATIONS TAKEN TO PHARMACY.
--- NOTE | 2018-12-24 19:30 | NUR ---
open note assumed care of pt, upon entering room pt family at bedside feeding pt. pt and family updated on plan of care. no s/s distress noted or expressed. call light in reach. no additional questions or concerns at this time. will round q1hr and as needed.
[2018-12-24] MEDS ORDERED: EPOETIN ALFA 10,000 UNIT/1 ML VIAL SC ONE (21:00)
[2018-12-24] MEDS: SENNA 8.6 MG TAB PO SCH (22:00)
[2018-12-24] MEDS: ATORVASTATIN 20 MG TAB PO SCH (22:00)
--- NOTE | 2018-12-24 23:31 | NUR ---
blood sugar recheck, 180mg/dl; which showed drop of 27 points without intervention. pt sleeping, no longer eating, insulin not administered. Addendum: 12/25/18 at 4 by TATYANA PHAN RN RN clarification; pt no longer eating tonight as she is going to sleep.
[2018-12-25] MEDS: ALBUTEROL SULF 2.5 MG/0.5ML(0.5%) NEB SOLN NEB SCH ×3 (00:49→11:33)
[2018-12-25] MEDS: IPRATROPIUM BROM 0.5 MG/2.5ML INH SOL NEB SCH ×3 (00:49→11:33)
[2018-12-25 05:00] VITALS: BP 156/67
[2018-12-25] MEDS: DOXYCYCLINE 100MG/250ML 250 ML IV SCH (05:00)
[2018-12-25] MEDS: GABAPENTIN 100 MG CAP PO SCH ×2 (06:00→14:00)
[2018-12-25] MEDS: SODIUM CHLOR 0.9% PF (SALINE LOCK) 10ML VIAL/SYR IV SCH ×2 (06:00→14:00)
[2018-12-25] MEDS: METOCLOPRAMIDE HCL 10 MG TAB PO SCH ×2 (06:00→14:00)
[2018-12-25] MEDS: ACCU-CHEK COMFORT CURVE STRIP VI SCH ×3 (06:26→18:00)
[2018-12-25] MEDS: InsuLIN REG 1unit/0.01ml Soln (100units/ml) SC SCH ×3 (06:26→17:00)
[2018-12-25] MEDS: CALCIUM ACETATE 667 MG CAP PO SCH ×2 (08:39→12:36)
[2018-12-25 09:00] VITALS: BP 152/73
[2018-12-25] MEDS: OSELTAMIVIR 30 MG CAP PO SCH (10:00)
[2018-12-25] MEDS: ENOXAPARIN SOD 60 MG/0.6 ML SYRINGE SC SCH (10:00)
[2018-12-25] MEDS: ASPirin 81 mg TAB PO SCH (10:00)
[2018-12-25] MEDS: DOCUSATE SOD 100 MG CAP PO SCH (10:00)
[2018-12-25] MEDS: GLIMEPIRIDE 2 MG TAB PO SCH (10:00)
[2018-12-25] MEDS: PANTOPRAZOLE 40 MG TAB PO SCH (10:00)
[2018-12-25] MEDS: CHOLECALCIFEROL (VITD3) 1,000 UNIT TAB PO SCH (10:01)
[2018-12-25] MEDS: CITALOPRAM HYDROBR 20 MG TAB PO SCH (10:02)
[2018-12-25] MEDS: amLODIPine BESYLATE 5 MG TAB PO SCH (10:03)
[2018-12-25] MEDS: CARVEDILOL 12.5 MG TAB PO SCH (10:03)
[2018-12-25] MEDS: NITROGLYCERIN 0.2MG/HR TOPICAL PATCH TD SCH (10:04)
--- NOTE | 2018-12-25 12:14 | NUR ---
DR. SCHMIDT AT BEDSIDE ORDERED APPLICATIONS DEVELOPMENT ANALYST FOR [employer] MANAGER BOARD AND CARE PLACEMENT. MADE AWARE INSULIN WAS HELD DUE TO SUDDEN DECREASE IN BLOOD SUGAR.
[2018-12-25 13:15] VITALS: BP 167/61
--- NOTE | 2018-12-25 15:10 | NUR ---
PLACEMENT SPOKE WITH DR. SCHMIDT, HE SAID PT DOES NOT QUALIFY FOR SNF AND [facility] WILL NOT PAY, PIPPA QUESADA MADE AWARE.
--- NOTE | 2018-12-25 15:20 | NUR ---
DR. SCHMIDT ORDERED EMERGENCY ROOM CLINICIAN CONSULT FOR HOMEHEALTH SERVICES AND SAFETY EVALUATION.
--- NOTE | 2018-12-25 15:30 | NUR ---
Spoke with Di the niece, she said they will take the pt home with home wilfrido services. [facility] health social work professor made aware.
--- NOTE | 2018-12-25 16:28 | NUR ---
PHOTO TAKEN ON PT'S SACRUM PER PROTOCOL.
--- NOTE | 2018-12-25 16:51 | NUR ---
assessment Patient is a 63 year old female who is sleeping. Patients Manuel is at bedside. morteza ZAMBRANO is translating for us. Peior to admission patient lived home with Manuel and functioned with his assistance. Per Manuel patient has a wheelchair for home use. Patients PCP is Dr Correa. Patient is on Dialysis with [facility] on -. Per anaid consult retirement board and care placement. I have provided Manuel with board and care prices. Per Manuel he cannot afford B&C placement. Patient makes 935.00per month and Manuel 1200.00 per month. Per Manuel he will take patient home on discharge. Yessi catalytic case operator is working on home health order. Manuel agreed to discharge plan home with home health. Addendum: 12/25/18 at 1655 by Ladonna DUVALL Amended: Links added.
--- NOTE | 2018-12-25 17:10 | NUR ---
SPOKE WITH JOHNATHAN BUSINESS DATABASE ANALYST, SHE SAID PT CAN GO HOME AND SHE WILL CALL [facility] AT [facility]# [phone] ONCE HOME HEALTH IS SET UP.
[2018-12-25 17:15] VITALS: BP 148/65
[2018-12-25 17:28] VITALS: BP 139/62
--- NOTE | 2018-12-25 17:28 | NUR ---
I faxed home health order to [facility].
--- NOTE | 2018-12-25 18:20 | NUR ---
Discharge instructions given as ordered. Encourage to follow up with DR. KRUEGER IN 1 WEEK, PT WILL MAKE HER OWN APPOINTMENT OFFICE IS CLOSE AT THIS TIME. All questions and concerns addressed. Patient verbalized understanding. Medication reconciliation form completed and copy given to patient. Home medications held in Pharmacy returned to patient. IV removed with catheter intact, pressure dressing applied, Telemetry unit returned to ICU. Patient taken to vehicle via wheelchair with all personal belongings, accompanied by staff and family member. No distress noted at time of departure.
[2018-12-25] MEDS ORDERED: DOXYCYCLINE 100 MG TAB/CAP PO SCH (22:00)
[2018-12-26] MEDS ORDERED: SODIUM CHL 0.9% 1000 ML BAG XX ONE (07:00)
[2018-12-26] MEDS ORDERED: EPOETIN ALFA 10,000 UNIT/1 ML VIAL SC ONE (21:00)
== END 2018-12-25 19:17 | disposition home health service (06) | DRG 193 ==
LOC: EDBD 11:31 → ER 11:31 → TELE 13:54 → TELE-CENTR 22:08
PROVIDERS: ADMIT Internal Medicine; ATTEND Internal Medicine Geriatric Medicine
PROC: 5A1D70Z Performance of Urinary Filtration, Intermittent, Less than 6 Hours Per Day (ICD-10-PCS; principal; 2018-12-24)
DX: J10.00 Influenza due to other identified influenza virus with unspecified type of pneumonia (principal); N18.6 End stage renal disease; E87.1 Hypo-osmolality and hyponatremia; I24.9 Acute ischemic heart disease, unspecified; I12.0 Hypertensive chronic kidney disease with stage 5 chronic kidney disease or end stage renal disease; E87.6 Hypokalemia; E11.40 Type 2 diabetes mellitus with diabetic neuropathy, unspecified; E78.5 Hyperlipidemia, unspecified; F32.9 Major depressive disorder, single episode, unspecified; D63.8 Anemia in other chronic diseases classified elsewhere; E11.22 Type 2 diabetes mellitus with diabetic chronic kidney disease; E11.319 Type 2 diabetes mellitus with unspecified diabetic retinopathy without macular edema; E11.21 Type 2 diabetes mellitus with diabetic nephropathy; E87.8 Other disorders of electrolyte and fluid balance, not elsewhere classified; E11.65 Type 2 diabetes mellitus with hyperglycemia; H54.7 Unspecified visual loss; D63.1 Anemia in chronic kidney disease; E11.42 Type 2 diabetes mellitus with diabetic polyneuropathy; Z99.2 Dependence on renal dialysis; Z82.49 Family history of ischemic heart disease and other diseases of the circulatory system; Z86.73 Personal history of transient ischemic attack (TIA), and cerebral infarction without residual deficits; Z83.3 Family history of diabetes mellitus
CPT/HCPCS: 36415; 71045; 71275; 80048; 80053; 80061; 82550; 82962; 83036; 83735; 83880; 84484; 85025; 85379; 85610; 85652; 85730; 86141; 87070; 87081; 87205; 87804; 90935; 93005; 93970; 94640; G0378; G9035; J0885; J1642; J1815; J3480; J3490